=== PATIENT | male | born 1955 | race Caucasian/White ===

== ENCOUNTER → 2021-03-28 | Outpatient (CLI) | payer OTHER, MEDICARE ==
[~2021-03-28] MED LIST: ASPIRIN EC81 M1 PO; BENADRYL25 MG PO; BENICAR40 MG PO; EFFIENT10 MG PO; LIPITOR40 MG PO; MULTIVITAMINS PO; NICOTINE TRANSD21 M1 TRANSDERM; TOPROL XL25 MG PO
== END ==
LOC: RAD 14:52
PROVIDERS: ATTEND Neuromusculoskeletal Medicine & OMM
DX: M47.816 Spondylosis without myelopathy or radiculopathy, lumbar region (principal); M51.37 Other intervertebral disc degeneration, lumbosacral region; M54.42 Lumbago with sciatica, left side

== ENCOUNTER → 2021-04-02 | Outpatient (CLI) | payer OTHER, MEDICARE | LOC: MRI 07:55 | PROVIDERS: ATTEND Neuromusculoskeletal Medicine & OMM | DX: M51.37 Other intervertebral disc degeneration, lumbosacral region (principal); M47.816 Spondylosis without myelopathy or radiculopathy, lumbar region; M48.061 Spinal stenosis, lumbar region without neurogenic claudication; M71.20 Synovial cyst of popliteal space [Baker], unspecified knee; M54.42 Lumbago with sciatica, left side ==

== ENCOUNTER → 2021-05-07 | Outpatient (CLI) | payer OTHER, MEDICARE | LOC: CAT 10:15 | PROVIDERS: ATTEND Specialist | DX: M51.27 Other intervertebral disc displacement, lumbosacral region (principal); M48.061 Spinal stenosis, lumbar region without neurogenic claudication; M71.38 Other bursal cyst, other site; M47.816 Spondylosis without myelopathy or radiculopathy, lumbar region; I70.0 Atherosclerosis of aorta; M51.26 Other intervertebral disc displacement, lumbar region ==

== ENCOUNTER → 2021-05-14 | Outpatient (CLI) | payer OTHER, MEDICARE ==
[~2021-05-14] VITALS: Ht 185.4 cm; Wt 115.7 kg
[~2021-05-14] MED LIST changes: +ASA81BEC PO; +LIPITOR80 MG PO; +MULTI VITAMIN1 EACH PO
[2021-05-14 08:57] VITALS: BP 156/92
--- NOTE | 2021-05-14 09:21 | NUR ---
Pain Clinic Assessment: 1. History of Osteoarthritis: LUMBAR SPINE History of Rheumatoid Arthritis: NONE 2. Height: 6 ft. 1 in. 185.4 cm. Weight: 255.0 lb. oz. 115.668 kg. Patient's BMI: 33.7 3. Vital Signs: BP: 156/92 Pulse: 71 Resp: 16 Temp: 02 Sat: 97 ECG Mon: 4. Pain Intensity: 4 TO 8 5. Fall Risk: Dizziness: N Needs help standing or walking: N Fallen in the last 3 months: Y Fall risk comments: 6. Patient on Blood Thinner: None 7. History of Hypertension: Y 8. Opioid Therapy greater than 6 weeks: N Opiate Contract Signed: 9. Risk Assessment Tool Provided: LOW-0 10. Functional Assessment Tool: 11. Recreational Drug Use: Never Drug Type: Tobacco Use: Current Every Day Smoker Tobacco Type: Cigarettes Amount or Packs/day: 1 PK How Many Years: Alcohol Use: No Frequency: Quant:
== END ==
LOC: PAIN
PROVIDERS: ATTEND Anesthesiology Pain Medicine
DX: M96.1 Postlaminectomy syndrome, not elsewhere classified (principal); I10 Essential (primary) hypertension; F17.200 Nicotine dependence, unspecified, uncomplicated; Z79.891 Long term (current) use of opiate analgesic